=== PATIENT | male | born 1945 | race Caucasian/White ===

== ENCOUNTER → 2016-12-31 | Day surgery (SDC) | payer MEDICARE, OTHER ==
[~2016-12-31] VITALS: Ht 180.3 cm; Wt 75.6 kg
[~2016-12-31] MED LIST: ADVIL200 MG PO; BACITRACIN OPH3.5 GM OPHTH; BACITRACIN1 PKT TOP; CPAP INH; FEOSOL325 MG PO; NORCO 5-325 MG1 TAB PO; NORCO 5-325 TA1 EACH PO
--- NOTE | ~2016-12-31 | OR ---
PATIENT'S NAME: SARAH PETERS [facility] AGE: 71 Y [address] ROOM: [place] [id number] LOCATION: [facility] [place] ADMIT DATE: 12/31/2016 OR/Procedure Report DISCHARGE DATE: FAMILY PHYSICIAN: PHYSICIAN, NO ATTENDING PHYSICIAN: Joey Ordoñez SURGEON: Joey Ordoñez MD SUBSTATION MANAGER: None. 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 POSTOPERATIVE DIAGNOSIS: Left religious basal cell carcinoma. PROCEDURE: 1. Wide local excision of the left religious basal cell carcinoma, 1.8 x 1.5 cm. 2. Complex closure, 3.2 cm. ANESTHESIA: Local with MAC. COMPLICATIONS: None. BLOOD LOSS: 5 mL. SPECIMEN: Left religious region. FINDINGS: Negative frozen section margins. INDICATIONS: The patient is a pleasant 71-year-old male with biopsy-proven basal cell carcinoma of the left religious, we discussed surgical excision and informed consent was obtained. The patient was brought to the operative suite, placed on the table in supine position. All pressure points were padded. Time-out was performed, correctly identifying the patient and procedure. MAC anesthesia was initiated. Local anesthetic was infiltrated, 1% lidocaine with epinephrine and 0.5% Marcaine with epinephrine in a 1:1 ratio. Thereafter, the area was prepped and draped in the usual sterile fashion. Incision was made in a circular fashion around the lesion and sent for frozen section margins. This came back as negative. Jamie's triangles were excised anterior and posterior, and undermining was performed in all directions a total of 4 x 4 cm. Thereafter, the incision was closed in a linear fashion with 4-0 Monocryl deep and 5-0 running fast gut suture to the skin. Ointment was applied. The patient tolerated well and emerged from anesthesia, brought to the recovery room in PATIENT'S NAME: SARAH PETERS [facility] AGE: 71 Y [address] ROOM: [place] [address] LOCATION: [facility] [place] ADMIT DATE: 12/31/2016 OR/Procedure Report DISCHARGE DATE: FAMILY PHYSICIAN: PHYSICIAN, NO ATTENDING PHYSICIAN: Joey Ordoñez stable condition. MD BECKY PITTMAN/fermin /[id number] d: 12/31/16 1452 t: 01/14/17 0723, OPERATIVE SUMMARY
== END | disposition disaster alternative care site (69) ==
LOC: GPOC 12-28 10:00 → GSDC 06:25
PROC: 0HB1XZZ Excision of Face Skin, External Approach (ICD-10-PCS; principal; 2016-12-31)
DX: C44.319 Basal cell carcinoma of skin of other parts of face (principal); Z98.890 Other specified postprocedural states
CPT/HCPCS: J7120